=== PATIENT | male | born 1995 | race Two or more races ===

== ENCOUNTER 2020-08-16 21:55 | Emergency (ER) | payer MEDICAID ==
[~2020-08-16] VITALS: Ht 165.1 cm; Wt 61.2 kg
--- NOTE | 2020-08-16 22:00 | NUR ---
PT GELY FROM STREET C/O ALCOHOL INTOXICATION. PT AWAKE, APPEARS INTOXICATED AND SMELLS OF ETOH. VITAL SIGNS STABLE. RESPIRATIONS EVEN AND UNLABORED. PT PLACED IN GOWN, BELONGINGS COLLECTED AND PLACED IN PATIENT LOCKER. SITTER AT BEDSIDE. WILL CONTINUE TO MONITOR
--- NOTE | 2020-08-16 22:15 | NUR ---
EVENT PLANNING MANAGER AT BEDSIDE FOR BLOOD DRAW
--- NOTE | 2020-08-16 22:18 | NUR ---
PT UNABLE TO PROVIDE URINE SAMPLE AT THIS TIME. MD AZEVEDO
[2020-08-16 22:21] LABS: BASOPHILS # (AUTO) 0.2 /CMM (0.0-0.2); BASOPHILS % (AUTO) 2.6 % (0.0-2.0); EOSINOPHILS % (AUTO) 1.3 % (0.0-6.0); HEMATOCRIT 45 % (39-51); HEMOGLOBIN 14.8 g/dL (13.5-17.5); LYMPHOCYTES # (AUTO) 2.6 /CMM (0.8-4.8); LYMPHOCYTES % (AUTO) 35.9 % (20.0-44.0); MEAN CORPUSCULAR HGB CONC 33 g/dl (31.0-36.0); MEAN CORPUSCULAR VOLUME 85 fL (80-96); MONOCYTES # (AUTO) 0.9 /CMM (0.1-1.30); MONOCYTES % (AUTO) 12.1 % (2.0-12.0); NEUTROPHILS # (AUTO) 3.4 /CMM (1.8-8.9); NEUTROPHILS % (AUTO) 48.1 % (43.0-81.0); PLATELET COUNT (AUTO) 242 /CMM (150-450); WHITE BLOOD COUNT (AUTO) 7.2 K/uL (4.3-11.0)
[2020-08-16 22:33] LABS: ALANINE AMINOTRANSFERASE 33 U/L (12-78); ALBUMIN 3.8 g/dL (3.4-5.0); ALCOHOL, BLOOD 298 mg/dL (0-0); ALKALINE PHOSPHATASE 125 U/L (46-116); ASPARTATE AMINOTRANSFERASE 26 U/L (15-37); BILIRUBIN,TOTAL 0.2 mg/dL (0.2-1.0); CALCIUM, SERUM 8.4 mg/dL (8.5-10.1); CARBON DIOXIDE 26 mmol/L (21-32); CHLORIDE 107 mmol/L (98-107); CREATININE 0.9 mg/dL (0.6-1.3); GLUCOSE 116 mg/dL (74-106); POTASSIUM 3.8 mmol/L (3.5-5.1); SODIUM SERUM 145 mmol/L (136-145); TOTAL PROTEIN, SERUM 7.3 g/dL (6.4-8.2); UREA NITROGEN, BLOOD 14 mg/dL (7-18)
[2020-08-16 22:35] LABS: ACETAMINOPHEN < 2 ug/ml (10-30)
--- NOTE | 2020-08-17 06:14 | NUR ---
pt awake aox4. denies si or hi. aware
--- NOTE | 2020-08-17 07:01 | NUR ---
MD AT BEDSIDE SPEAKING WITH PATIENT.
--- NOTE | 2020-08-17 07:34 | NUR ---
UNABLE TO REACH MOTHER. PATIENT STATES THAT SHE DID NOT PAY HER PHONE BILLS.
--- NOTE | 2020-08-17 07:35 | NUR ---
PATIENT PROVIDED WITH FOOD AND SHIRT.
--- NOTE | 2020-08-17 07:36 | NUR ---
PATIENT PROVIDED PERSONAL ADDRESS. [address] [place] [id number]
--- NOTE | 2020-08-17 07:36 | NUR ---
PATIENT IS AAOX4. DR. RAHMAN NOTIFIED. PATIENT IS AMBUALTORY WITH A STAEDY GAIT.
[2020-08-17 07:41] VITALS: BP 118/73
--- NOTE | 2020-08-17 07:41 | NUR ---
Patient discharged to home in stable condition. Written and verbal after care instructions given. Patient verbalizes understanding of instruction.IV removed. Catheter intact and site benign. Pressure and 4x4 applied to site. No bleeding noted.
== END 2020-08-17 07:42 | disposition home or self-care (01) ==
LOC: ER 21:57
DX: F10.129 Alcohol abuse with intoxication, unspecified (principal); F41.9 Anxiety disorder, unspecified; F32.9 Major depressive disorder, single episode, unspecified; J45.909 Unspecified asthma, uncomplicated; Y90.6 Blood alcohol level of 120-199 mg/100 ml
CPT/HCPCS: 36415; 80048-TC; 80076-TC; 85025-TC; G0480